=== PATIENT | female | born 1955 | race Caucasian/White ===

== ENCOUNTER 2016-09-21 13:19 | Emergency (ER) | payer OTHER ==
[2016-09-21] MEDS ORDERED: IPRATROPIUM/ALBUTEROL 3 ML DEYVIAL IH ONE (13:35)
--- NOTE | 2016-09-21 13:38 | EDPHY ---
H & P Stated Complaint: sob, anxiety HPI/ROS: CHIEF COMPLAINT: Cough HISTORY OF PRESENT ILLNESS: Patient is a 60-year-old female who was at work and had a coughing fit. Her coworkers became concerned and called 911. She now states that she feels better. She states that she has had a cough and sinus congestion for the last 3 weeks. She was seen at the urgent care had a negative rapid strep and strep culture and told her that it was from postnasal drip. She has been taking [id number] cough syrup sink using Mucinex and Sudafed without significant improvement. She states that they dry her out and make her feel crazy. She got a piece of mucus stuck in her vocal cords and was having trouble getting it out. She is asking for a drink of water but they did not understand her and called 911. She does not have any history of cardiac or respiratory disease. She denies chest pain or shortness of breath. She has lost her voice. REVIEW OF SYSTEMS: Constitutional: denies: chills, fever, recent illness, recent injury EENTM: denies: blurred vision, double vision, nose congestion Respiratory: See HPI Cardiac: denies: chest pain, irregular heart rate, lightheadedness, palpitations Gastrointestinal/Abdominal: denies: abdominal pain, diarrhea, nausea, vomiting, blood streaked stools Genitourinary: denies: dysuria, frequency, hematuria, pain Musculoskeletal: denies: joint pain, muscle pain Skin: denies: lesions, rash, jaundice, bruising Neurological: denies: headache, numbness, paresthesia, tingling, dizziness, weakness Hematologic/Lymphatic: denies: blood clots, easy bleeding, easy bruising Immunologic/allergic: denies: HIV/AIDS, transplant EXAM: GENERAL: Well-appearing, well-nourished and in no acute distress. HEAD: Atraumatic, normocephalic. EYES: Pupils equal round and reactive to light, extraocular movements intact, sclera anicteric, conjunctiva are normal. ENT: TMs normal, nares patent, oropharynx clear without exudates. Moist mucous membranes. NECK: Normal range of motion, supple without lymphadenopathy or JVD. LUNGS: Breath sounds clear to auscultation bilaterally and equal. No wheezes rales or rhonchi. HEART: Regular rate and rhythm without murmurs, rubs or gallops. ABDOMEN: Soft, nontender, normoactive bowel sounds. No guarding, no rebound. No masses appreciated. BACK: No CVA tenderness, no spinal tenderness, step-offs or deformities EXTREMITIES: Normal range of motion, no pitting or edema. No clubbing or cyanosis. NEUROLOGICAL: Cranial nerves II through XII grossly intact. Normal speech, normal gait. 5/5 strength, normal movement in all extremities, normal sensation PSYCH: Normal mood, normal affect. SKIN: Warm, dry, normal turgor, no visible rashes or lesions. Source: Patient Exam Limitations: No limitations - Personal History Current Tetanus Diphtheria and Acellular Pertussis (TDAP): Unsure - Medical/Surgical History Hx Asthma: No Hx Chronic Respiratory Disease: Yes Hx Diabetes: No Hx Cardiac Disease: No Hx Renal Disease: No Hx Cirrhosis: No Hx Alcoholism: No Hx HIV/AIDS: No Hx Splenectomy or Spleen Trauma: No - Family History Significant Family History: No pertinent family hx - Social History Smoking Status: Never smoked Alcohol Use: Sober Drug Use: None Constitutional: Initial Vital Signs Temperature (C) 36.6 C 09/21/16 13:28 Heart Rate 90 09/21/16 13:28 Respiratory Rate 20 09/21/16 13:28 Blood Pressure 184/101 H 09/21/16 13:28 O2 Sat (%) 97 09/21/16 13:28 O2 Delivery Mode Room Air Allergies/Adverse Reactions: No Known Allergies Allergy (Unverified 10/29/11 14:19) Home Medications: Medication Instructions Recorded AZITHROMYCIN [Z-PACK] 250 mg PO DAILY 5 Days 10/29/11 Albuterol Hfa Anes Only [Proair 0 puffs IH 10/29/11 Hfa Icu (RX)] Benzonatate [Tessalon Pearles] 200 mg PO BID #10 cap 10/29/11 Hydrocodone Bit/Acetaminophen 1 tab PO Q4-6PRN PRN #10 tab 10/29/11 [Vicodin 5/500] No Medications [NO HOME 1 ea MISC 10/29/11 MEDICATIONS] AZITHROMYCIN [Z-PACK] 250 mg PO DAILY #4 tab 09/21/16 Medical Decision Making - Diagnostics EKG Interpretation: An EKG obtained and was read and documented in trace view. Please see trace view for full reading and report. Sinus rhythm, first-degree block, similar to previous Imaging: X-ray: chest x-ray was obtained. I viewed the images myself on the PACS system. My interpretation of the images is: Bronchitis. The radiologist interpretation is bronchitis. ED Course/Re-evaluation: 2:10 p.m. we discussed the x-ray results. I will start her on azithromycin. She states the DuoNeb helped her symptomatology. I will start her also on it albuterol pump p.r.n.. She agrees with this plan and declines any further workup or testing. Her vital signs have been stable. Differential Diagnosis: Partial list of the Differential diagnosis considered include but were not limited to; bronchitis, pneumonia, upper respiratory tract infection, strep throat and although unlikely based on the history and physical exam, I also considered abscess, congestive heart failure, sepsis. I discussed these differential diagnoses and the plan with the patient as well as the usual and expected course. The patient understands that the diagnosis is provisional and that in medicine we are not always correct and that further workup is often warranted. Usual and customary warnings were given. All of the patient's questions were answered. The patient was instructed to return to the emergency department should the symptoms at all worsen or return, otherwise to followup with the physician as we discussed. - Data Points Medications Given: Discontinued Medications Albuterol Sulfate (Proventil Inh Prepack) 1 mdi TAKEHOME EDNOW ONE Stop: 09/21/16 14:12 Last Admin: 09/21/16 14:38 Dose: 1 mdi Albuterol/Ipratropium (Duoneb) 3 ml IH EDNOW ONE Stop: 09/21/16 13:36 Last Admin: 09/21/16 13:50 Dose: 3 ml Azithromycin (Zithromax) 500 mg PO EDNOW ONE PRN Reason: Protocol Stop: 09/21/16 14:12 Last Admin: 09/21/16 14:38 Dose: 500 mg Departure - Departure Disposition: Home, Routine, Self-Care Clinical Impression: Bronchitis Condition: Fair Instructions: Albuterol (By breathing), Acute Bronchitis (ED) Referrals: Patient,NotPresent [Unknown] - As per Instructions Ana Adams MD [Medical Doctor] - As per Instructions Prescriptions: AZITHROMYCIN [Z-PACK] 250 mg PO DAILY #4 tab
[2016-09-21] MEDS ORDERED: AZITHROMYCIN 250 MG TAB PO ONE (14:11)
[2016-09-21] MEDS ORDERED: ALBUTEROL INH PREPACK MDI TAKEHOME ONE (14:11)
[2016-09-21 14:44] VITALS: BP 161/107; PULSE 99; RESP 18; TEMP 98.1; O2SAT 93
== END 2016-09-21 14:51 | disposition home or self-care (01) ==
LOC: EDUNIT#
DX: J20.9 Acute bronchitis, unspecified (principal)

== ENCOUNTER → 2018-07-15 | Outpatient (CLI) | payer OTHER | LOC: BMCIMAGING 07:39 | PROVIDERS: ATTEND Physician Assistant | DX: M25.561 Pain in right knee (principal) ==